=== PATIENT | female | born 1945 | race Caucasian/White ===

== ENCOUNTER 2023-12-27 12:43 | Emergency (ER) | payer MEDICARE, MEDICAID, SELFPAY ==
--- NOTE | ~2023-12-27 | CT_ITS ---
EXAMINATION: CT abdomen pelvis w con DATE: 12/27/2023 13:57 INDICATION: Epigastric abdominal pain. Early satiety. TECHNIQUE: Computed tomography (CT) of the abdomen and pelvis was performed with 100 mL Omnipaque 350 intravenous contrast. Automated exposure control and iterative reconstruction technique were employe d. The dose-length product was 514.54 mGy-cm. COMPARISON: None. FINDINGS: The visualized portions of the lung bases demonstrate atelectasis. There is a 4 mm nodule a t minor fissure, likely benign. No pleural effusion. The heart size is normal. No pericardial effusio n. There is a moderate-sized sliding hiatal hernia. There are changes of cholecystectomy. There is mi ld intrahepatic biliary duct dilatation. The common duct measures 16 mm in diameter. These findings a re likely not clinically significant given the normal liver function tests. The spleen, pancreas, and adrenal glands are normal. There are cysts in the kidneys measuring up to 16 mm on the right. There is diverticulosis of the colon without evidence of diverticulitis. There are no dilated loops of srinivasa l. The appendix is is not visualized. There are no pathologically enlarged lymph nodes. There is no f ree intraperitoneal fluid. Epidural electrodes are noted. There is severe thoracic and lumbar spondyl osis. IMPRESSION: 1. Moderate-sized sliding hiatal hernia. Reviewed, dictated and finalized at location A.
[2023-12-27 12:47] VITALS: BP 136/81; PULSE 90; RESP 17; TEMP 37.2; O2SAT 97
--- NOTE | 2023-12-27 12:52 | ED.ABDPAIN ---
HPI - Abdominal Pain General Chief Complaint: Abdominal Pain Stated Complaint: abdominal pain Time Seen by Provider: 12/27/23 12:44 Source: patient and family (Daughter) Mode of arrival: ambulatory Limitations: no limitations History of Present Illness HPI narrative: Patient presents with upper abdominal pain past several weeks to months but worsening last night. Pain is located in her epigastrium and in the left upper quadrant. She has previously been told that she has a hiatal hernia after having these symptoms and is on Protonix per review of her medication list. She reports she takes this medication is not out for need of refills. She had been having nausea, vomiting, and diarrhea for few weeks though the symptoms resolved. Patient and her daughter both state that she alternates between episodes of diarrhea followed by episodes of infrequent stooling. She reports her last bowel movement was a few days ago. She denies any bloody movements. Last oral intake was on Monday. She reports early satiety. She has been taking Tylenol a and tramadol for pain. Food makes her symptoms worse. She also feels short of breath especially with lying flat. Patient will occasionally try to move the left upper side side of her abdomen more centrally as this can help her provide some relief. She reports fevers and chills. She previously had a tractor technician and had undergone an EGD and colonoscopy. She reports colonoscopy only noted some polyps. She is scheduled to establish with a new tractor technician soon undergo another EGD on 01/15/2024. She reports feeling fatigued, particularly worsening in the past several months since moving to assisted living though is responsible for own meds. Related Data Allergies Allergy/AdvReac Type Severity Reaction Status Date / Time No Known Allergies Allergy Verified 12/27/23 12:53 [facility] Past Medical History Medical History (Updated 12/28/23 @ 00:00 by 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 HEAD: Normocephalic, atraumatic. EYES: Non injected, non icteric ENT: Nares clear, no rhinorrhea or epistaxis. NECK: Supple. CHEST: Speaking in full sentences. No respiratory distress. HEART: Regular rate and rhythm. ABDOMEN: Soft, nondistended. Mild tenderness palpation at the epigastrium without rigidity or guarding. Not peritoneal. Well healed midline scar EXTREMITIES: Normal range of motion. No edema. Right AKA. SKIN: Warm, dry, no rash. NEURO: No focal deficits. Alert and oriented x3. PSYCH: Normal mood and affect. Course Vital Signs Vital signs: Vital Signs Temperature 98.9 F 12/27/23 12:47 Pulse Rate 90 12/27/23 12:47 Respiratory Rate 17 12/27/23 12:47 Blood Pressure 136/81 12/27/23 12:47 Pulse Oximetry 97 12/27/23 12:47 Oxygen Delivery Room Air 12/27/23 12:47 Temperature 98.3 F 12/27/23 13:30 Pulse Rate 88 12/27/23 14:30 Respiratory Rate 16 12/27/23 14:30 Blood Pressure 138/76 12/27/23 14:30 Pulse Oximetry 97 12/27/23 14:30 Oxygen Delivery Room Air 12/27/23 12:47 MDM - Abdominal Pain MDM Narrative Medical decision making narrative: Patient presents with acute on chronic epigastric and left upper quadrant abdominal pain present for several months but worsening last night. She also has been having nausea, vomiting and intermittent diarrhea interspersed with infrequent bowel movements for a few weeks prior the symptoms h
[2023-12-27 13:00] LABS: Basophils Absolute Auto 0.1 K/mm3 (0.0-0.1); Basophils Percent Auto 1.1 % (0.2-1.2); Eosinophils Percent Auto 0.3 % (0-4.4); Hematocrit 41.7 % (37.0-47.0); Hemoglobin 13.6 g/dL (12.0-15.0); Immature Granulocyte Absolute 0.01 K/mm3 (0.00-0.031); Immature Granulocyte Percent A 0.2 % (0-0.5); Lymphocytes Percent Auto 23.7 % (18.3-44.2); Mean Corpuscular HGB Conc 32.6 g/dl (32-36); Mean Corpuscular Hemoglobin 29.6 pg (26-34); Mean Corpuscular Volume 90.7 fl (80-100); Mean Platelet Volume 10.1 fl (7.4-10.4); Monocytes Absolute Auto 0.5 K/mm3 (0.1-0.6); Monocytes Percent Auto 7.6 % (2.6-8.5); Neutrophils Absolute Auto 4.2 K/mm3 (1.3-6.7); Neutrophils Percent Auto 67.1 % (45.5-73.1); Platelet Count Result 311 k/mm3 (150-375); Red Cell Distribution Width 14.6 % (11.5-14.5); White Blood Count 6.3 K/mm3 (4.5-10.0)
[2023-12-27 13:07] VITALS: BP 152/89; PULSE 75; RESP 20; TEMP 36.8; O2SAT 98
[2023-12-27 13:30] VITALS: BP 136/77; PULSE 72; RESP 20; TEMP 36.8; O2SAT 96
[2023-12-27 13:34] LABS: Alanine Aminotransferase 11 U/L (6-35); Albumin Level 4.1 g/dL (3.5-5.1); Alkaline Phosphatase 94 U/L (38-126); Anion Gap 9 mmol/L (4-12); Aspartate Amino Transferase 22 U/L (14-36); Bilirubin,Total 0.8 mg/dL (0.2-1.3); Blood Urea Nitrogen 12 mg/dL (7-17); Calcium 9.4 mg/dL (8.4-10.2); Carbon Dioxide 20 mmol/L (22-30); Chloride 110 mmol/L (98-107); Estimated CRCL calculation 42 ml/min; Estimated Glomerular Filt Rate > 60; Glucose 89 mg/dL (65-110); Lipase 20 U/L (23-300); Sodium 139 mmol/L (137-145)
[2023-12-27] MEDS: MORPHINE SULFATE (*CRX) 4 MG/ML INJ 2 MG IV PUSH (13:38)
[2023-12-27 14:00] LABS: Influenza A QL RT-PCR Negative (Negative); Influenza B QL RT-PCR Negative (Negative); RSV RNA, RT-PCR Negative (Negative); SARS-CoV-2 RNA PCR Negative (Negative)
[2023-12-27 14:30] VITALS: BP 138/76; PULSE 88; RESP 16; O2SAT 97
[2023-12-27 14:31] LABS: Appearance Urine Clear (Clear); Bacteria Urine None Seen /hpf; Bilirubin Urine Negative (Negative); Blood Urine Negative (Negative); Color Urine Yellow (Yellow); Glucose Urine UA Negative (Negative); Ketones Urine Trace mg/dL (Negative); Leukocyte Esterase Ur Trace LEU/UL (Negative); Nitrate Urine Negative (Negative); Non Pathogenic Casts 0-2; Protein Urine Negative (Negative); RBC Urine 0-2 /hpf (0-2); Specific Grav Ur 1.017 (1.001-1.035); Squamous Epithelial Cell Urine None Seen /hpf (Few); Urobilinogen Urine 0.2 mg/dL (<2.0); WBC Urine 0-5 /hpf (0-3)
[2023-12-27 14:32] LABS: Add Urine Microscopic? YES
== END 2023-12-27 14:49 | disposition home or self-care (01) ==
PROVIDERS: Emergency Provider Student in an Organized Health Care Education/Training Program
DX: K44.9 Diaphragmatic hernia without obstruction or gangrene (principal); Z20.822 Contact with and (suspected) exposure to COVID-19; Z89.611 Acquired absence of right leg above knee; Z90.49 Acquired absence of other specified parts of digestive tract
CPT/HCPCS: 36415; 74177; 80053; 81001; 83690; 83735; 85025; 87637; 96374; 99284; J2270; Q9967

== ENCOUNTER 2025-07-08 00:58 | Emergency (ER) | payer MEDICARE, MEDICAID, SELFPAY ==
--- NOTE | ~2025-07-08 | CT_ITS ---
CT HEAD NON-CONTRAST Clinical History: ANDRADE Comparison: None Technique: Unenhanced axial images skull base to vertex Coronal, sagittal reformats CT images acquired with automatic exposure control for dose reduction DLP: 681 mGy-cm Findings: Chronic white matter microvascular ischemic changes. Sulci, ventricles: Unremarkable. No intracerebral hemorrhage. No evidence acute territorial infarct. No mass effect, midline shift. Bony calvarium intact. Visualized paranasal sinuses: Clear. Mastoid air cells: Clear. IMPRESSION: 1. No acute intracranial findings. Reviewed, dictated and finalized at location R. [employer]
[2025-07-08 01:32] VITALS: BP 108/55; PULSE 94; RESP 18; TEMP 36.4; O2SAT 100
--- NOTE | 2025-07-08 03:17 | ED_ITS ---
HPI - Headache General Chief Complaint: Headache Stated Complaint: ANDRADE SINCE YESTERDAY Time Seen by Provider: 07/08/25 02:02 History of Present Illness HPI Narrative: 79-year-old female with a history of prior CVA, right AKA, left leg cellulitis. She presents from her retirement facility for concerns of a headache started onset yesterday morning around 8:00 a.m.. She states initially she had a mild headache that responded to Tylenol but today the headache got worse and localized behind her left eye on and behind her forehead. Denies any trauma or falls. No blood thinner use. She was otherwise in her normal state of health. She describes the headache as a throbbing migraine and she has a history of migraines in the past. Does not take any medications for them now. Denies any blood thinner use. No other symptoms such as fever, chills, neck pain, neck stiffness, nausea, vomiting, mental status changes or confusion. Presents via EMS from her skilled care facility for evaluation of her headache. 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 Mucous membranes moist. NECK: Supple. CHEST: [Clear to auscultation. No respiratory distress.] HEART: [Regular rate and rhythm]. No murmur heard. [Normal peripheral pulses.] ABDOMEN: [Soft, nondistended], [nontender], [No rigidity or guarding] EXTREMITIES: right [id number]-[id number]-pega amputation, left lower extremity with some mild edema but no redness or obvious signs of infection. Full range of motion of the other extremities without any Weakness or sensation changes. SKIN: Warm, dry, no rash. NEURO: [No focal deficits]. Alert and oriented [x3.] PSYCH: [Normal mood and affect.] Course Vital Signs Vital signs: Vital Signs Temperature 36.4 C 07/08/25 01:32 Pulse Rate 94 07/08/25 01:32 Respiratory Rate 18 07/08/25 01:32 Blood Pressure 108/55 L 07/08/25 01:32 Pulse Oximetry 100 07/08/25 01:32 Oxygen Delivery Room Air 07/08/25 01:32 Temperature 36.4 C L 07/08/25 05:25 Pulse Rate 94 07/08/25 05:25 Respiratory Rate 20 07/08/25 05:25 Blood Pressure 125/67 07/08/25 05:25 Pulse Oximetry 100 07/08/25 05:25 Oxygen Delivery Room Air 07/08/25 01:32 MDM MDM Narrative Medical decision making narrative: 79-year-old female with a history of prior CVA, right AKA, left leg cellulitis. She presents from her retirement facility for concerns of a headache started onset yesterday morning around 8:00 a.m.. She states initially she had a mild headache that responded to Tylenol but today the headache got worse and localized behind her left eye on and behind her forehead. Denies any trauma or falls. No blood thinner use. She was otherwise in her normal state of health. She describes the headache as a throbbing migraine and she has a history of migraines in the past. Does not take any medications for them now. Denies any blood thinner use. No other symptoms such as fever, chills, neck pain, neck stiffness, nausea, vomiting, mental status changes or confusion. Presents via EMS from her skilled care facility for evaluation of her headache. Patient is overall very well-appearing not any acute distress. She has unremarkable vital signs. No tachycardia, fever, hypoxemia or significant blood pressure anomalies. She describes a headache she feels like is a migraine she has a history of them previously. Initially responded the Tylenol but not today. No red flag signs on her neurological examination she is awake alert oriented. No other symptoms at this time besides the headache and she is mentating appropriately with no falls or blood thinner use. CT of the head ordered to rule out intracranial pathology given her age and risk factors. She was given Compazine, diphenhydramine, fluids and laboratory studies ordered. CT of the head came back unremarkable and symptoms improved with migraine cocktail. She is safe for discharge back to her skilled care facility with unremarkable findings and improvement in symptoms with instructions for return precautions and follow-up instructions with PCP. Differential Diagnosis Differential Diagnosis: Migraine, tension headache, cluster headache, intracranial hemorrhage, stroke, dehydration Lab Data 07/08/25 03:35 07/08/25 03:35 Labs: Lab Results 07/08/25 Range/Units 03:35 WBC 6.5 (4.5-10.0) K/mm3 RBC 3.56 L (4.2-5.4) M/mm3 Hgb 11.5 L (12.0-15.0) g/dL Hct 34.3 L (37.0-47.0) % MCV 96.3 (80-100) fl MCH 32.3 (26-34) pg MCHC 33.5 (32-36) g/dl RDW 13.5 (11.5-14.5) % Plt Count 342 (150-375) k/mm3 MPV 9.4 (7.4-10.4) fl Immature Gran % (Auto) 0.2 (0-0.5) % Neut % (Auto) 61.5 (45.5-73.1) % Lymph % (Auto) 26.1 (18.3-44.2) % Forrest % (Auto) 9.8 H (2.6-8.5) % Eos % (Auto) 1.8 (0-4.4) % Baso % (Auto) 0.6 (0.2-1.2) % Lymph # (Auto) 1.71 (0.9-3.2) K/mm3 Forrest # (Auto) 0.6 (0.1-0.6) K/mm3 Eos # (Auto) 0.1 (0-0.3) K/mm3 Baso # (Auto) 0.0 (0.0-0.1) K/mm3 Abs Immat Gran (auto) 0.01 (0.00-0.031) K/mm3 Absolute Neuts (auto) 4.0 (1.3-6.7) K/mm3 Absolute Nucleated RBC 0.000 (0.0-0.012) K/mm3 Nucleated RBC % 0.0 (0.0-0.2) % Sodium 137 (137-145) mmol/L Potassium 3.2 L (3.4-5.0) mmol/L Chloride 106 (98-107) mmol/L Carbon Dioxide 25 (22-30) mmol/L Anion Gap 6 (4-12) mmol/L BUN 9 (7-17) mg/dL Creatinine 0.72 (0.7-1.0) mg/dL Estim Creat Clear Calc 46 ml/min Estimated GFR > 60 (59 - ) Glucose 84 (65-110) mg/dL Calcium 9.0 (8.4-10.2) mg/dL Discharge Plan Discharge Clinical Impression: Migraine Patient Disposition: Home Condition: Stable Instructions: Antibiotic Form, Acute Headache (ED) Additional Instructions: CT scan shows no acute findings. Laboratory studies are normal. Symptoms consistent with a migraine which you have a history of in the past. Return with any emergent concerns otherwise continue taking Tylenol and ibuprofen as needed every 6-8 hours for fever and pain control. Follow-up with regular primary care provider. Patient Language: Sinhala Follow-up/Referrals: Francesco,Casey Chun MD [Primary Care Provider] Time of Disposition: 05:19
[2025-07-08] MEDS: PROCHLORPERAZINE EDISYLATE 10 MG/2 ML VIAL IV PUSH (03:40)
[2025-07-08] MEDS: SODIUM CHLORIDE 0.9% IV 1,000 ML 999 ML IV CONT (03:43)
[2025-07-08 03:45] LABS: Hematocrit 34.3 % (37.0-47.0); Hemoglobin 11.5 g/dL (12.0-15.0); Immature Granulocyte Percent A 0.2 % (0-0.5); Lymphocytes Absolute Auto 1.71 K/mm3 (0.9-3.2); Mean Corpuscular HGB Conc 33.5 g/dl (32-36); Mean Corpuscular Hemoglobin 32.3 pg (26-34); Mean Corpuscular Volume 96.3 fl (80-100); Nucleated Red Blood Cells Absolute Auto 0.000 K/mm3 (0.0-0.012); Nucleated Red Blood Cells Perc 0.0 % (0.0-0.2); Platelet Count Result 342 k/mm3 (150-375); Red Blood Count 3.56 M/mm3 (4.2-5.4); White Blood Count 6.5 K/mm3 (4.5-10.0)
[2025-07-08 03:54] LABS: Anion Gap 6 mmol/L (4-12); Blood Urea Nitrogen 9 mg/dL (7-17); Calcium 9.0 mg/dL (8.4-10.2); Carbon Dioxide 25 mmol/L (22-30); Chloride 106 mmol/L (98-107); Estimated CRCL calculation 46 ml/min; Estimated Glomerular Filt Rate > 60; Glucose 84 mg/dL (65-110); Potassium 3.2 mmol/L (3.4-5.0); Sodium 137 mmol/L (137-145)
[2025-07-08] MEDS: MIDAZOLAM HCL (*CRX) 2 MG/2 ML VIAL IV PUSH (04:20)
[2025-07-08] MEDS: dexAMETHasone SOD PHOS INJ 10 MG/ML 1 ML VIAL IV PUSH (05:14)
[2025-07-08] MEDS: KETOROLAC 15 MG/ML VIAL (*BKC) IV PUSH (05:14)
[2025-07-08 05:25] VITALS: BP 125/67; PULSE 94; RESP 20; TEMP 36.4; O2SAT 100
== END 2025-07-08 05:26 ==
PROVIDERS: Emergency Provider Student in an Organized Health Care Education/Training Program; PCP Internal Medicine
DX: G43.909 Migraine, unspecified, not intractable, without status migrainosus (principal); K44.9 Diaphragmatic hernia without obstruction or gangrene; Z96.651 Presence of right artificial knee joint; Z86.73 Personal history of transient ischemic attack (TIA), and cerebral infarction without residual deficits; Z89.611 Acquired absence of right leg above knee; Z90.49 Acquired absence of other specified parts of digestive tract
CPT/HCPCS: 36415; 70450; 80048; 85025; 96361; 96374; 96375; 99284; J0780; J1100; J1200; J1885; J2250; J7030